=== PATIENT | female | born 1965 | race African-American/Black ===

== ENCOUNTER → 2019-01-11 | Outpatient (CLI) | payer OTHER | LOC: MHCPAIN 12:48 | DX: G89.29 Other chronic pain (principal); M47.817 Spondylosis without myelopathy or radiculopathy, lumbosacral region; M54.16 Radiculopathy, lumbar region; M53.3 Sacrococcygeal disorders, not elsewhere classified | CPT/HCPCS: G0463 ==

== ENCOUNTER → 2019-01-14 | Outpatient (CLI) | payer OTHER | LOC: MHCPAIN 14:31 | DX: M47.817 Spondylosis without myelopathy or radiculopathy, lumbosacral region (principal); M54.16 Radiculopathy, lumbar region | CPT/HCPCS: J1100; Q9967 ==

== ENCOUNTER → 2019-01-19 | Outpatient (CLI) | payer OTHER | LOC: MHCPAIN 09:05 | DX: G89.29 Other chronic pain (principal); M47.817 Spondylosis without myelopathy or radiculopathy, lumbosacral region; M54.16 Radiculopathy, lumbar region; M53.3 Sacrococcygeal disorders, not elsewhere classified | CPT/HCPCS: G0463 ==

== ENCOUNTER → 2019-02-18 | Outpatient (CLI) | payer OTHER | LOC: MHCPAIN 11:34 | DX: M47.817 Spondylosis without myelopathy or radiculopathy, lumbosacral region (principal); M54.16 Radiculopathy, lumbar region | CPT/HCPCS: J1100; Q9967 ==

== ENCOUNTER → 2019-03-03 | Outpatient (CLI) | payer OTHER | LOC: MHCPAIN 13:24 | DX: G89.29 Other chronic pain (principal); M47.817 Spondylosis without myelopathy or radiculopathy, lumbosacral region; M54.16 Radiculopathy, lumbar region; M53.3 Sacrococcygeal disorders, not elsewhere classified | CPT/HCPCS: G0463 ==

== ENCOUNTER 2020-06-16 10:36 | Emergency (ER) | payer OTHER ==
[~2020-06-16] VITALS: Ht 157.5 cm; Wt 84.5 kg
[2020-06-16 10:52] VITALS: TEMP 97.9
[2020-06-16] MEDS ORDERED: MEDROL 4MG DOSPA4 MG PO (11:52)
[2020-06-16] MEDS ORDERED: FLEXERIL 1010 MG/TAB PO (11:53)
[2020-06-16] MEDS ORDERED: NORCO 325 MG-51 TAB PO (11:53)
[2020-06-16 12:10] VITALS: BP 145/99; PULSE 94
== END 2020-06-16 12:10 | disposition home or self-care (01) ==
LOC: COL.ER 10:36
DX: M54.16 Radiculopathy, lumbar region (principal); Z88.1 Allergy status to other antibiotic agents
CPT/HCPCS: J1885

== ENCOUNTER → 2020-11-28 | Outpatient (CLI) | payer OTHER ==
[~2020-11-28] MED LIST: FLEXERIL 1010 MG/TAB PO; MEDROL 4MG DOSPA4 MG PO; NORCO 325 MG-51 TAB PO
== END ==
LOC: COL.RAD 07:38
DX: M75.01 Adhesive capsulitis of right shoulder (principal); S43.431A Superior glenoid labrum lesion of right shoulder, initial encounter; M75.81 Other shoulder lesions, right shoulder; M19.011 Primary osteoarthritis, right shoulder
CPT/HCPCS: A9585; Q9967